=== PATIENT | female | born 1970 | race Caucasian/White ===

== ENCOUNTER 2020-02-05 23:53 | Emergency (ER) | payer BC ==
[~2020-02-05] VITALS: Ht 175.3 cm; Wt 79.4 kg
--- NOTE | 2020-02-06 00:20 | NUR ---
TRICIA FROM HOME C/O POSSIBLE OD ON UNKNOWN MEDS, TO ER BED 12 VSS
--- NOTE | 2020-02-06 00:42 | NUR ---
PT AT BEDSIDE. PER PT PT ACTING NORMAL AND WOULD LIKE TO TAKE HER HOME. ER MADE AWARE WITH ORDERS TO D/C PT.
--- NOTE | 2020-02-06 01:09 | NUR ---
Patient discharged to home in stable condition. Written and verbal after care instructions given. Patient verbalizes understanding of instruction.
[2020-02-06 01:10] VITALS: BP 132/76
== END 2020-02-06 01:10 | disposition home or self-care (01) ==
LOC: ER 23:53 → EDSEX 23:53 → ER 02-06 01:10
DX: T50.991A Poisoning by other drugs, medicaments and biological substances, accidental (unintentional), initial encounter (principal); Y92.89 Other specified places as the place of occurrence of the external cause